=== PATIENT | male | born 1990 | race Caucasian/White ===

== ENCOUNTER 2017-12-18 20:39 | Emergency (ER) | payer BC, OTHER ==
[2017-12-18] MEDS ORDERED: HYDROcodone/Acetaminophen 10/325 mg Tablet ONE (20:49)
--- NOTE | 2017-12-18 23:12 | RAD ---
RIGHT ANKLE THREE VIEWS 12/18/17 Prominent soft tissue swelling is seen, especially laterally. There is a small chunk of bone at the t ip of the lateral malleolus that has somewhat smooth margins suggesting that it is probably an old av ulsion. There is a separate rounded piece below it that also suggests the same. None of the findings were strongly indicative of acute fracture. The articular surfaces of the ankle joint seems smooth. T he posterior process of the talus is ununited, probably the normal anatomical variant, but in some ca ses this can be due to an old injury as well. IMPRESSION: Prominent soft tissue swelling laterally with evidence of old ankle trauma, as well. POS: HOME
--- NOTE | 2017-12-18 23:14 | RAD ---
RIGHT FOOT THREE VIEWS: 12/08/17 Oblique fractures of the distal fifth metatarsal are seen with displacement of some of the fragments. This is a more complicated fracture than usual, therefore, ortho referral is recommended. The remain ron of the foot appears intact. Very minor hallux valgus is present. IMPRESSION: Fractures involving the distal fifth metatarsal shaft that extends into the neck with some displaceme nt. POS: HOME
== END 2017-12-18 21:37 | disposition home or self-care (01) ==
LOC: BURERS 20:39
DX: S92.351A Displaced fracture of fifth metatarsal bone, right foot, initial encounter for closed fracture (principal); S93.401A Sprain of unspecified ligament of right ankle, initial encounter; X50.1XXA Overexertion from prolonged static or awkward postures, initial encounter; Y93.67 Activity, basketball
CPT/HCPCS: 28470

== ENCOUNTER 2020-01-22 21:05 | Emergency (ER) | payer OTHER ==
[2020-01-22] MEDS ORDERED: Ibuprofen 200 MG TAB ONE (21:17)
[2020-01-22] MEDS ORDERED: Amoxicillin/Potassium Clav 875 MG TAB ONE (21:17)
[2020-01-22] MEDS ORDERED: Acetaminophen 500 MG TAB ONE (21:17)
== END 2020-01-22 21:37 | disposition home or self-care (01) ==
LOC: BURERS 21:05
DX: S61.251A Open bite of left index finger without damage to nail, initial encounter (principal); W54.0XXA Bitten by dog, initial encounter; I10 Essential (primary) hypertension
CPT/HCPCS: 99283